=== PATIENT | male | born 1985 | race Caucasian/White ===

== ENCOUNTER 2018-03-06 10:00 | Outpatient (CLI) | payer OTHER ==
--- NOTE | 2018-03-06 16:59 | MRI Report ---
Reason: PAIN IN RIGHT KNEE Procedure Date: 03/06/2018 Accession Number: [id number] / [id number] Procedure: MRI - Knee RT W/O CPT Code: FULL RESULT: EXAM: RIGHT KNEE MRI WITHOUT CONTRAST EXAM DATE: 03/06/2018 11:10 AM. CLINICAL HISTORY: Pain in right knee. COMPARISON: None. TECHNIQUE: Multiplanar, multisequence T1-weighted and fluid-sensitive sequences of the knee without contrast. Other: None. FINDINGS: Bones: No fractures or subluxations. No marrow edema. No bone lesions. Articular Cartilage: Cartilaginous fissure with some undermining seen at the patellar apex and lateral patellar facet. Series 401 image 25. Medial and lateral compartments are relatively spared. Medial Meniscus: The medial meniscus is intact. Lateral Meniscus: The lateral meniscus is intact. Cruciate Ligaments: The anterior and posterior cruciate ligaments are intact. Collateral Ligaments: The medial collateral and lateral collateral ligamentous structures are intact. Tendons: The quadriceps, patellar, semimembranosus, and popliteus tendons are unremarkable. Musculature: No edema or fatty atrophy. Other: Trace joint effusion. No popliteal cyst. No loose bodies. The medial and lateral retinacula are intact. The subcutaneous tissues and fat pads are unremarkable. IMPRESSION: 1. There is a fissure at the patella apex with some undermining of the cartilaginous portion of the lateral patellar facet. 2. Menisci, cruciates and collaterals appear unremarkable. [facility] MUSCULOSKELETAL RADIOLOGY SECTION
== END 2018-03-06 10:01 | disposition home or self-care (01) ==
LOC: DI 10:00
PROVIDERS: ATTEND General Practice
DX: M23.91 Unspecified internal derangement of right knee (principal)